=== PATIENT | female | born 1985 | race Caucasian/White ===

== ENCOUNTER 2016-08-03 16:44 | Emergency (ER) | payer SELFPAY ==
[~2016-08-03] VITALS: Ht 162.6 cm; Wt 84.1 kg
[~2016-08-03 16:44] MED LIST: DOXY25TA11 DOB; METO5TAB6 PO; ONDA4TAB7 PO; PREN1TAB53 PO; ZOLP-107 PO
[2016-08-03 16:48] VITALS: Ht 162.6 cm; Wt 84.1 kg
--- OUTSIDE RECORDS SUMMARY | 2016-08-03 16:48 | XMS REPORT | Referral Summary ---
Author Author [facility], Family [facility] Organization [facility] Address Unknown Phone Unavailable Care Team Providers Care Plant Engineering Manager Name Role Phone Cresencio Thibodeaux Primary Care Physician [phone] Encounter VC Date(s): 11/16/15 - 11/16/15 [facility], [address] [place] [address] Discharge Diagnosis: Acute bacterial sinusitis Discharge Disposition: 01-Home or Self Care Attending Physician: Jamila Thibodeaux DO Admitting Physician: Jamila Thibodeaux DO Vital Signs Most recent to 1 oldest [Reference Range]: Temperature Tympanic 37.0 degC [36.6-38.1 degC] (11/16/15 3:51 PM) Peripheral Pulse 100 bpm Rate [60-100 bpm] (11/16/15 3:51 PM) Respiratory Rate 17 br/min [14-20 br/min] (11/16/15 3:51 PM) Blood Pressure 118/70 mmHg [90-140/60-90 mmHg] (11/16/15 3:51 PM) SpO2 98 % (11/16/15 3:51 PM) Problem List Condition Effective Dates Status Health Status Informant Anxiety(Confirmed) Active Migraine Active headache(Confirmed) Obesity(Confirmed) Active patient Allergies, Adverse Reactions, Alerts Substance Reaction Severity Status erythromycin Active Medications Keflex 500 mg oral capsule 500 mg 1 caps, Oral, TID, X 7 days, # 21 caps, 0 Refill(s), Pharmacy: [id number], 1 caps Oral TID,x7 days Start Date: 11/16/15 Stop Date: 11/23/15 Status: Ordered Melatonin Bedtime (once a day), 0 Refill(s) Start Date: 08/18/15 Status: Ordered PROzac 20 mg oral capsule 20 mg 1 caps, Oral, Daily, # 30 caps, 0 Refill(s), Pharmacy: [facility], 1 caps Oral Daily Start Date: 11/16/15 Status: Ordered traZODone 50 mg oral tablet 25 mg 0.5 tabs, Oral, Bedtime (once a day), # 15 tabs, 0 Refill(s), Pharmacy: [facility], 0.5 tabs Oral Bedtime (once a day) Start Date: 11/16/15 Status: Ordered Results No data available for this section Immunizations Vaccine Date Refusal Reason influenza virus vaccine, inactivated 03/04/15 Procedures No data available for this section Social History Social History Type Response Smoking Status Never smoker Assessment and Plan Extracted from: Title: ACUTE sinusitis Author: Jamila Thibodeaux DO Date: 11/16/15 Assessment/Plan Acute bacterial sinusitis We will go ahead and give the patient some Keflex. She shouldavoid taking that much ibuprofen and stick to 800 mg 3 times a day. Advised her that she can take1 g of Tylenol with this at a time to see if this would work adequately. Also advised patient that we would give her no refills of her chronic medications after this one unless she starts keeping follow-up appointments. Ordered: Office Visit Level 3 Est 46949 Sore throat Rapid strep negative. Orders: cephalexin, 500 mg 1 caps, Oral, TID, X 7 days, # 21 caps, 0 Refill(s) , Pharmacy: [facility], 1 caps Oral TID,x7 days FLUoxetine, 20 mg 1 caps, Oral, Daily, # 30 caps, 0 Refill(s), Pharmacy: [facility], 1 caps Oral Daily traZODone, 25 mg 0.5 tabs, Oral, Bedtime (once a day), # 15 tabs, 0 Refill(s) , Pharmacy: [facility], 0.5 tabs Oral Bedtime (once a day)
--- OUTSIDE RECORDS SUMMARY | 2016-08-03 16:48 | XMS REPORT | Referral Summary ---
Author Author [facility], Family Medicine Organization [facility] Address Unknown Phone Unavailable Care Team Providers Care Special Procedures Tech Name Role Phone Cresencio Thibodeaux Primary Care Physician [phone] Encounter VC Date(s): 08/18/15 - 08/18/15 [facility] [place], [address] [place] [address]- Discharge Disposition: 01-Home or Self Care Attending Physician: Aydin Guzman APRN Admitting Physician: Aydin Guzman APRN Vital Signs Most recent to 1 oldest [Reference Range]: Peripheral Pulse 85 bpm Rate [60-100 bpm] (08/18/15 1:31 PM) Blood Pressure 125/90 mmHg [90-140/60-90 mmHg] (08/18/15 1:31 PM) SpO2 99 % (08/18/15 1:31 PM) Problem List Condition Effective Dates Status Health Status Informant Anxiety(Confirmed) Active Migraine Active headache(Confirmed) Obesity(Confirmed) Active patient Allergies, Adverse Reactions, Alerts Substance Reaction Severity Status erythromycin Active Medications Melatonin Bedtime (once a day), 0 Refill(s) Start Date: 08/18/15 Status: Ordered PROzac 20 mg oral capsule 20 mg 1 caps, Oral, Daily, # 30 caps, 0 Refill(s), Pharmacy: [facility], 1 caps Oral Daily Start Date: 08/18/15 Status: Ordered traZODone 50 mg oral tablet 25 mg 0.5 tabs, Oral, Bedtime (once a day), # 15 tabs, 0 Refill(s), Pharmacy: [facility], 0.5 tabs Oral Bedtime (once a day) Start Date: 08/18/15 Status: Ordered Results No data available for this section Immunizations Vaccine Date Refusal Reason influenza virus vaccine, inactivated 03/04/15 Procedures No data available for this section Social History Social History Type Response Smoking Status Never smoker Assessment and Plan No data available for this section
--- OUTSIDE RECORDS SUMMARY | 2016-08-03 16:48 | XMS REPORT | Referral Summary ---
Author Author [facility], Family Medicine Organization [facility] Address Unknown Phone Unavailable Care Team Providers Care Ship Captain Name Role Phone Cresencio Thibodeuax Primary Care Physician [phone] Encounter VC Date(s): 03/04/15 - 03/04/15 [facility] [place], [address] [place] [address]- Discharge Disposition: 01-Home or Self Care Attending Physician: Jamila Thibodeaux DO Admitting Physician: Jamila Thibodeaux DO Vital Signs Most recent to 1 oldest [Reference Range]: Temperature Tympanic 36.9 degC [36.6-38.1 degC] (03/04/15 10:31 AM) Peripheral Pulse 105 bpm Rate [60-100 bpm] *HI* (03/04/15 10:31 AM) Respiratory Rate 17 br/min [14-20 br/min] (03/04/15 10:31 AM) Blood Pressure 140/80 mmHg [90-140/60-90 mmHg] (03/04/15 10:31 AM) SpO2 96 % (03/04/15 10:31 AM) Problem List Condition Effective Dates Status Health Status Informant Obesity(Confirmed) Active patient Allergies, Adverse Reactions, Alerts Substance Reaction Severity Status erythromycin Active Medications busPIRone 10 mg oral tablet 10 mg 1 tabs, Oral, TID, # 90 tabs, 0 Refill(s), Pharmacy: [facility], 1 tabs Oral TID Start Date: 03/04/15 Status: Ordered sertraline 50 mg oral tablet See Instructions, 1 TAB DAILY X 7 DAYS THEN 1.5 TABS DAILY, # 38.5 tabs, 1 Refill(s), Pharmacy: [facility], REFILL WILL BE FOR 45 TABS, 1 TAB DAILY X 7 DAYS THEN 1.5 TABS DAILY Start Date: 03/04/15 Status: Ordered Results Hematology Most recent to 1 oldest [Reference Range]: WBC [4.8-10.8 7.9 10*3/uL 10*3/uL] (03/04/15 11:30 AM) RBC [4.00-5.20] 4.92 (03/04/15 11:30 AM) Hgb [12.0-16.0 14.3 gm/dL gm/dL] (03/04/15 11:30 AM) Hct [37.0-47.0 %] 42.3 % (03/04/15 11:30 AM) MCV [82.0-99.0 fL] 86.0 fL (03/04/15 11:30 AM) MCH [27.0-32.0 pg] 29.1 pg (03/04/15:30 AM) MCHC [32.0-36.0 33.8 gm/dL gm/dL] (03/04/15 11:30 AM) RDW [11.5-14.5 %] 12.2 % (03/04/15 11:30 AM) Platelet [150-400 341 10*3/uL 10*3/uL] (03/04/15 11:30 AM) MPV [8.8-14.8 fL] 11.0 fL (03/04/15 11:30 AM) Immature 0.0 % Granulocytes (03/04/15:30 AM) [0.0-1.0 %] Neutrophils [51-75 69 % %] (03/04/15 11:30 AM) Lymphocytes [20-46 24 % %] (03/04/15 11:30 AM) Monocytes [4-11 %] 6 % (03/04/15 11:30 AM) Eosinophils [0-4 %] 1 % (03/04/15 11:30 AM) Basophils [0-2 %] 0 % (03/04/15 11:30 AM) Neutro Absolute 5.44 10*3 [1.90-7.00 10*3] (03/04/15 11:30 AM) Lymph Absolute 1.87 10*3 [0.80-3.30 10*3] (03/04/15 11:30 AM) Loving Absolute 0.49 10*3 [0.30-1.00 10*3] (03/04/15 11:30 AM) Eos Absolute 0.08 10*3 [0.00-0.50 10*3] (03/04/15 11:30 AM) Baso Absolute 0.02 10*3 [0.00-0.20 10*3] (03/04/15 11:30 AM) Chemistry Most recent to 1 oldest [Reference Range]: Sodium Lvl [135-144 141 mEq/L mEq/L] (03/04/15 11:30 AM) Potassium Lvl 3.8 mEq/L [3.5-5.2 mEq/L] (03/04/15 11:30 AM) Chloride [99-111 107 mEq/L mEq/L] (03/04/1530 AM) CO2 [22-31 mEq/L] 25 mEq/L (03/04/15:30 AM) AGAP [3-20] 9 (03/04/1530 AM) BUN [7-19 mg/dL] 8 mg/dL (03/04/1530 AM) Glucose Lvl [70-99 99 mg/dL mg/dL] (03/04/15 11:30 AM) Creatinine Lvl 0.73 mg/dL [0.57-1.11 mg/dL] (03/04/15 11:30 AM) eGFR [>60 mL/min] >60 mL/min 1 (03/04/15 1130 AM) Calcium Lvl 9.6 mg/dL [8.9-10.5 mg/dL] (03/04/1530 AM) Albumin Lvl [3.5-5.0 4.4 gm/dL gm/dL] (03/04/15 11:30 AM) Total Protein 7.2 gm/dL [6.4-8.3 gm/dL] (03/04/1530 AM) Globulin [1.8-4.0 2.8 gm/dL gm/dL] (03/04/15 11:30 AM) ALT [0-55 U/L] 12 U/L (03/04/1530 AM) AST [5-34 U/L] 14 U/L (11/12/15 11:30 AM) Alk Phos [40-150 76 U/L U/L] (03/04/15 11:30 AM) Bili Total [0.2-1.2 1.1 mg/dL mg/dL] (03/04/15 11:30 AM) TSH with Reflex Free 0.90 T4 [0.35-4.94] (03/04/15 11:30 AM) 1Result Comment: Multiply eGFR results by 1.21 for race. Immunizations Vaccine Date Refusal Reason influenza virus vaccine, inactivated 03/04/15 Procedures No data available for this section Social History Social History Type Response Smoking Status Never smoker Assessment and Plan No data available for this section
[2016-08-03] MEDS ORDERED: IBUP-1724 PO (17:14)
[2016-08-03] MEDS ORDERED: NO ROUTINE MEDS (17:15)
[2016-08-03] MEDS ORDERED: AMOX875T2 PO (17:28)
[2016-08-03] MEDS ORDERED: ACETAMINOPHEN 500 MG TABLET PO ONE (17:30)
--- NOTE | 2016-08-03 17:31 | ERPDOC ---
Departure Disposition Decision Date: Aug 03, 2016 Disposition Decision Time: 17:27 Disposition: 01 DISCHARGED HOME, SELF-CARE Impression Impression Impression: Primary Impression: Pharyngitis Qualified Codes: J02.9 - Acute pharyngitis, unspecified Severity: Mild Condition: Improved Seen By: Physician only Referrals: [facility] 2 Days Patient Instructions: Pharyngitis (ED) Problems/Meds/Labs Reviewed?: Yes Medications reviewed and manag: Yes Follow up care ordered?: Yes Mental Status: Alert, Oriented Scripts Amoxicillin (Amoxicillin) 875 Mg Tablet 1 TAB PO Q12H for 10 Days, #20 TAB 0 Refills Prov: HESHAM BERNABE DO 08/03/16 HPI - EENT General General Chief Complaint: Throat Pain/Injury Stated Complaint: SORE THROAT Time Seen by Provider: 17:20 Source: patient Exam Limitations: no limitations HPI - EENT General Initial Comments 31-year-old female presents to the emergency department with a chief complaint of a sore throat. Patient noted onset of symptoms "a couple of days ago." Symptoms have been gradual in progression. Patient was at home when her symptoms began. Patient notes a moderate sharp pain in her throat which increases with swallowing and improves with rest and analgesia. No radiation. Patient denies any other complaints or associated symptoms. Occurred At: home Onset/Timing: Gradual Allergies: Coded Allergies: Shellfish *RETIRED-01/29/12 (Verified Allergy, Severe, 04/08/12) azithromycin (Verified Allergy, Intermediate, 04/08/12) Erythromycin Base (Verified Adverse Reaction, Unknown, NAUSEA, 04/08/12) Past History Past Medical History Pt denies signifigant PMH Hx Echocardiogram: No Surgical History Denies Surgeries Family History Family History: Negative Vaccines Hx Influenza Vaccination: Yes Hx Pneumococcal Vaccination: No Hx Tetanus Diptheria: Yes (AGE 17) Social History Smoking Status: Never smoker Substance Use Type: does not use Alcohol Intake: none Review of Systems Constitutional Constitutional: DENIES: chills, fever Eyes General: DENIES: erythema, exudate Lids/Accessories: DENIES: erythema, swelling Vision: DENIES: acuity, blurring ENMT Ears: DENIES: drainage, erythema Hearing: DENIES: hearing loss Balance: DENIES: ataxia, falling to one side Sinuses: DENIES: congestion, pain Nose: DENIES: nosebleeds, pain Mouth/Throat: painful swallowing, sore throat, DENIES: drooling Teeth: DENIES: pain Jaw: DENIES: pain Cardiovascular Cardiac: DENIES: chest pain, dyspnea on exertion Rhythm/Rate: DENIES: irregular beat, palpitations Vascular: DENIES: pedal edema, unilateral swelling Pulmonary Respiratory: DENIES: cough, dyspnea, pleuritic chest pain, sputum GI Upper Abdomen: DENIES: nausea, pain, vomiting Lower Abdomen: DENIES: diarrhea, pain General: DENIES: dysuria, frequency Musculoskeletal General: DENIES: cramps, joint pain, pain, tenderness Integumentary Skin: DENIES: itching, rash Neurological General: DENIES: headache, numbness, weakness Psychiatric Psychiatric: DENIES: emotional instability, suicidal ideation/attempt Endocrine Endocrine: DENIES: polydipsia, polyphagia Hematologic/Lymphatic Hematologic/Lymphatic: DENIES: frequent nosebleeds, lymphadenopathy Allergic/Immunological Allergic/Immunoligical: DENIES: allergic reactions, hives Physical Exam General General Nourishment: well nourished, well developed, appears stated age, no acute distress, adult General Body Habitus: well groomed Vitals and Pain First Documented Vital Signs Date Time Temp Pulse Resp B/P Pulse Ox O2 Delivery O2 Flow Rate FiO2 08/03/16 16:48 98.9 83 16 130/76 98 Room Air Weight: Kilograms: 84.100 Height (feet): 5 Height (inches): 4.00 Triage Pain Scale: RN VS reviewed by Provider: Yes Normal Exams: Head: Normocephalic w/o trauma Eyes: Pupils are PERRLA w/ EOMI, No scleral icterus, irritation, or foreign bodies noted ENMT: No facial trauma, nasal exudates Dental: No fractured, loose, or missing teeth noted Neck: Full range of motion, without adenopathy, JVD, bruits or thyromegaly Chest/Resp: Clear all powell, with good airflow, and symmetry bilaterally CV: Regular rate and rhythm, without murmur or gallop, Pulses 2+ all extremities, capillary refill, <2 seconds all ext., no pedal edema noted Abdomen: Bowel sounds positive, soft, non-tender, non-distended, no hepatosplenomegaly, masses or bruits noted Lymphatic: No lymphadenopathy, or lymphedema noted Musculoskeletal: No tenderness, or deformity noted, good range of motion, all extremities Integumentary: No rashes, hives, or bruising noted, hair and nails, without abnormality Neurologic: Patient is alert, and oriented, cranial nerves, motor/sensory/ cerebellar, exams w/o gross deficits, to observation Psychiatric: Patient exhibits, appropriate attention, emotion and affect ENMT (brief) Comments Oral - mild posterior pharyngeal erythema. Tonsillar exudates noted. Uvula midline. Voice normal. Handling secretions without difficulty. No elevation of tongue. No sign of abscess. No facial swelling or cellulitis. Differential Diagnoses Considering: Sinusitis, URI, Other (pharyngitis/viral syndrome) Progress Results/Orders Orders Procedure Category Date Status Time Acetaminophen PHA 08/03/16 Complete (Tylenol Extra 17:30 Medications Current ED Medications Acetaminophen (Tylenol Extra Strength) 1,000 mg O ONCE PO Last administered on 08/03/16t 18:01; Start 08/03/16 at 17:30; Stop 08/03/16 at 17:31; Status DC Progress Progress Patient is offered a rapid strep and mono titer which she declines. Patient is started on amoxicillin 875 mg by mouth twice a day 10 days. Patient is given analgesic pain medication in the emergency department with improvement of symptoms. Patient is discharged home in improved condition. She is to follow up as instructed. Patient is to return to the emergency Department if her condition worsens or changes in any manner. Patient is in agreement with the current plan of management. She is to follow up as instructed. She is to continue to use [id number] analgesic pain medication as needed for pain/ fever control. She is provided with a prescription for amoxicillin 875 mg by mouth twice a day 10 days. She is in agreement with the current plan of management. HESHAM BERNABE DO Aug 03, 2016 17:30 HESHAM BERNABE DO Aug 03, 2016 17:30
[2016-08-03 18:05] VITALS: BP 115/72; PULSE 79; RESP 16; TEMP 98.9; O2SAT 97
== END 2016-08-03 18:05 | disposition home or self-care (01) ==
LOC: ED 16:44
DX: J02.9 Acute pharyngitis, unspecified (principal)

== ENCOUNTER 2017-06-17 18:51 | Inpatient (IN) ==
--- OUTSIDE RECORDS SUMMARY | 2017-06-17 18:56 | External Medical Summary | Continuity of Care Document ---
:1985 Author Organization [facility] [employer] [facility] Address [address] [place], [place] [id number] Phone Care Team Providers Name Role Phone Jamila Thibodeaux DO Unavailable Unavailable Allergies, Adverse Reactions, Alerts Substance Reaction Severity Status shellfish derived Trouble Breathing Unknown Active azithromycin stomch cramps vomiting Unknown Active Medications Medication Instructions Dosage Effective Status Comments Dates (start - stop) zolpidem 5 mg tablet take 1 tablet by 5 MG - Active oral route every day at bedtime ORAL - Active TABLET ondansetron 4 mg take 1 by Oral Not Available - No Longer disintegrating route every 4 Active tablet hours as needed for nausea Problems Condition Effective Dates (start - stop) Clinical Status Morbid (severe) obesity due to excess - calories Obesity complicating , second - trimester Encounter for suprvsn of normal - , second trimester 17 weeks gestation of - Oth related conditions, - third trimester Abn chromsoml and genetic find on - antenat screen of mother Abnormal glucose complicating - 35 weeks gestation of - Morbid (severe) obesity due to excess - calories Abn chromsoml and genetic find on - antenat screen of mother Encounter for suprvsn of normal - , third trimester 28 weeks gestation of - Vomiting of , unspecified Abn chromsoml and genetic find on - antenat screen of mother Obesity complicating , third - trimester 36 weeks gestation of - Abn chromsoml and genetic find on - antenat screen of mother Obesity complicating , second - trimester Encounter for suprvsn of normal - , second trimester 26 weeks gestation of - Abn chromsoml and genetic find on - antenat screen of mother Obesity complicating , third - trimester Encounter for suprvsn of normal - , third trimester 36 weeks gestation of - Abn chromsoml and genetic find on - antenat screen of mother Obesity complicating , third - trimester Abnormal glucose complicating - 31 weeks gestation of - Abn chromsoml and genetic find on - antenat screen of mother Abnormal glucose complicating - 33 weeks gestation of - Decreased movements, third - trimester, unsp Obesity complicating , third - trimester Encounter for suprvsn of normal - , third trimester 37 weeks gestation of - Obesity complicating , second - trimester Encounter for suprvsn of normal - , second trimester 20 weeks gestation of - Encounter for suprvsn of normal - , second trimester 20 weeks gestation of - IUD Surveillance - Active Procedures Procedure Date Unknown Results Test Name Date and Time Measure Units Reference Range Abnormal Flag Comments Unknown Advance Directives Directive Yes / No Effective Date File Name Unknown Encounters Encounter Practice Location Reason(s) Diagnoses Date Provider Care Team Description For Visit Members [facility] Decreased Feb-1 Sobbing In Womens movements, third 5-201 [facility], trimester, 8 700 [address] [facility], complicating [place], , third [facility], [place], trimesterEncount [address] [id number], er for suprvsn 120, [place] of normal [place], tel:[phone] , third [place], [email or web address] [address], weeks gestation [place]. of tel: [phone] [facility] [place] Abn chromsoml Feb-0 [facility]bing In Womens and genetic find 8-201 [facility], on antenat 8 700 [address] screen of Medical [address], [facility] [place], , third [address] [id number], trimesterEncount 120, [place] er for suprvsn [place], tel:+[phone] of normal [place], [id number] , third [address], [email or web address] [place]. weeks gestation tel:[phone] of [phone] [facility] Abn chromsoml Feb-0 [facility] In Womens Ultrasound and genetic find 8-201 [facility], on antenat 8 700 [address] screen of Medical [address], [place], [place], , third [address] [id number], [email or web address] 120, [place] weeks gestation [place], tel:+[phone] [place], [address], [place]. tel: [phone] [facility] Oth Feb-0 [facility]bing In Womens related 5-201 [facility], conditions, 8 700 PO [address] third Medical 1522, trimesterAbn [facility] and [place], [place], genetic find on Suite , antenat screen 120, [place] of [place], tel:[phone] [place]Abnormal [place], glucose [address], complicating [place]. [email or web address] tel:+05-23 weeks gestation [phone] of [facility] Serjio-2 Sobbing In Womens 6-201 [facility], 8 700 [address] Medical [address], Center [place], [place], [address] [id number], 120, [place], tel:[phone] [place], [address], [place]. tel: [phone] [facility] Abn chromsoml Serjio-2 Sobbing In Womens and genetic find 3-201 [facility], on antenat 8 700 PO [address] screen of Medical [address]22, motherAbnormal Center [place], glucose [facility], [place], complicating [address] [id number], [email or web address] 120, [place] weeks gestation [place], [place], [address], [place]. tel: [phone] [facility] Abn chromsoml Serjio-0 Sobbing In Womens and genetic find [facility], on antenat 8 700 PO [address] screen of Medical [address]22, [facility] [place], , third Suite , trimesterAbnorma 120, [place] l glucose [place], tel: complicating [place], [id number] [address], weeks gestation [place]. of tel: [phone] [facility] Morbid (severe) Dec-1 Sobbing Referring In Womens obesity due to [facility]. Provider: Latonia QUIROZ, excess 7 700 [place]ory PO Box caloriesAbn Medical Sobbing L, 1522, chromsoml and Center 700 Medical [place], genetic find on [facility], antenat screen [address] Suite , of 120, 120, [place] motherEncounter [place], tel: for suprvsn of [place], . normal [address], tel: , third [place]. [id number] [email or web address] tel: weeks gestation [phone] of [facility] Abn chromsoml Nov-3 Sobbing In Womens and genetic find 0 [facility], on antenat 7 700 [address] screen of Medical [address], motherObesity [place], [place], , Suite , second 120, [place] trimesterEncount [place], tel: [facility] of normal [address], , [place]. second tel: [id number] [phone] weeks gestation of [facility] Obesity Oct-1 Sobbing In Womens complicating [place], , 7 700 PO Box second Medical 1522, [facility], er for [place], [place], of normal [address] [id number], , 120, [place] second [place], tel:+ [id number] [place], weeks gestation [address], of [place]. tel:[phone] Brandy [place] Encounter for Oct-1 Sobbing In Womens Ultrasound suprvsn of 9 [facility], normal 7 700 PO Box , Medical [address]22, second Center [place], [email or web address] [place], [place], weeks gestation [address] [id number], of 120, [place], [place], [address], [place]. tel: [phone] Brandy [place] Morbid (severe) Sep-2 Sobbing In Womens obesity due to 8 [facility] [place], excess 7 700 PO Box caloriesObesity Medical 1522, complicating Center [place], , [facility], [place], second [address] [id number], trimesterEncount 120, [place] er for suprvsn [place], [place]: [place], , [address], second [place]. [email or web address] tel: weeks gestation [phone] of [facility] Vomiting of Sep-1 Sobbing In Womens , 2-201 [facility], unspecified 7 700 [address] Medical [address], Center [place], [place], [place], Suite , 120, [place], [place], [address], [place]. tel: [phone] Brandy [place] Oct-1 Js Referring In Womens 5-201 [place]. 700 Provider: Latonia QUIROZ, 3 Medical [facility] [address] [place] [address], Peter Serrano [address] [place] [address] 120, [place], [place] [address], , [place], [place], [place] [id number]. tel: , [place]. tel: tel: [phone] Brandy [facility] Oct-1 Js Referring In Womens 8-201 [place]. 700 Provider: Latonia QUIROZ, 1 Medical [facility] 1522, , [facility], 120, [place], [place], [place], [address], [id number], [place], [place], [place] [id number]. tel: , [place]. tel: tel: [phone] Family History Family Member Diagnosis Age At Onset No family history of Ovarian Cancer Close relative Cancer, breast No family history of Stroke No family history of Colon Cancer Maternal Grandmother Cancer, breast No family history of Osteoporosis Paternal Grandmother Myocardial Infarction No family history of Thyroid Disorder No family history of Epilepsy No family history of Kidney Problems No family history of Diabetes No family history of Lung Disease No family history of Hypertension Immunizations Vaccine Date Status Comments Tdap completed Source: New Immunization Record Payers Payer name Insurance type Covered alliance party ID Authorization(s) [employer] [place] [employer] - Medicaid [place] [id number] [facility] [id number] [employer] - Medicaid [place] [id number] Social History Type Description Quantity Date Captured Unknown Vital Signs Date / Height Weight BMI Pulse Blood Temperature Respiratory Body Head BMI Time: Rate Pressure Rate Surface Circumference percentile Area Unknown Chief Complaint And Reason For Visit Unknown Chief Complaint And Reason For Visit Reason For Referral Reason For Referral Unknown Plan Of Care Date Type Action Status Goal Lifestyle education regarding completed diet Appointment Ainsley Nuñez BOOKED Future Order: Radiology Order Ultrasound OB Follow-up ([id number]) Ordered Future Order: Radiology Order Complete OB Ultrasound > 14 Ordered Weeks ([id number]) Date Type Problem Goal Intervention Status Start Date Unknown. History Of Present Illness Encounter Date Complaint History Of Present Illness This patient has no known history of present illness Functional Status Encounter Date Functional Assessment Cognitive Assessment Unknown Medications Administered Medication Instructions Dosage Effective Dates (start - stop) Status Comments Drug Treatment Unknown Instructions Date Instruction Additional Information anticipated course of care nutrition and weight gain counseling, special diet toxoplasmosis precautions (cats / raw meat) sexual activity exercise indications for ultrasound influenza vaccine environmental / work hazards travel tobacco (ask, advise, assess, assist and arrange) alcohol illicit / recreational drugs use of any medications (including supplements, vitamins, herbs, OTC drugs) smoking counseling domestic violence seat belt use childbirth classes / hospital facilities hospital registration genetic testing new ob handbook risks HIV and other routine tests risk factors identified by history Giving encouragement to exercise Related to Body mass index 34.0-34.9 Lifestyle education regarding diet Related to Body mass index 34.0-34.9
[2017-06-17] MEDS ORDERED: METHYLERGONOVINE 0.2 MG/ML INJECTION IM PRN (19:20)
[2017-06-17] MEDS ORDERED: MAG-AL + SIM ORAL LIQUID 30ml PO PRN (19:20)
[2017-06-17] MEDS ORDERED: CARBOPROST 250 MCG/ML INJECTION IM PRN (19:20)
[2017-06-17] MEDS ORDERED: SALINE FLUSH 10ml SYRINGE IV PRN (19:20)
[2017-06-17] MEDS ORDERED: LIDOCAINE 1% (10mg/ml) 2mL INJ PF SDV ID PRN (19:20)
[2017-06-17] MEDS ORDERED: ACETAMINOPHEN 500 MG TABLET PO PRN (19:20)
[2017-06-17 19:35] VITALS: BMI 36.6
[2017-06-17] MEDS: LR 1,000 ML IV PRN (19:56)
--- NOTE | 2017-06-17 22:06 | Anesthesia Preoperative Report ---
Anesthesia Epidural/Spinal Rec - Date and Time Date: 06/17/17 Procedure: Labor Epidural Plan: Epidural - Vital Signs Vital Signs: Temperature 98.3 F 06/17/17 19:35 Pulse Rate 108 H 06/17/17 19:35 Respiratory Rate 20 06/17/17 19:35 Blood Pressure 137/82 06/17/17 19:35 /Para: P:4 - Medictaions & Allergies Inpatient Medications: Current Medications Acetaminophen (Tylenol) 500 - 1,000 mg PO Q4H PRN PRN Reason: Pain Al Hydroxide/Mg Hydroxide (Maalox Plus) 30 ml PO Q3H PRN PRN Reason: Indigestion Calcium Carbonate (Tums) 500 - 1,000 mg PO Q2H PRN PRN Reason: Indigestion Carboprost Tromethamine (Hemabate) 250 mcg IM O PRN PRN Reason: .Downtime Lactated Ringer's (Lactated Ringers) 1,000 mls @ 999 mls/hr IV .Q1H1M PRN Last Admin: 06/17/17 19:56 Dose: 999 mls/hr Lidocaine HCl (Xylocaine-Mpf 1% Vial) 0.2 mg ID O PRN PRN Reason: IV Start Methylergonovine Maleate (Methergine) 0.2 mg IM O PRN Misoprostol (Cytotec) 800 mcg ID ONCE PRN Sodium Chloride (Iv Flush) 10 - 80 ml IV PRN PRN PRN Reason: Flushing Allergies/Adverse Reactions: Allergies Allergy/AdvReac Type Severity Reaction Status Date / Time azithromycin Allergy Intermediate Verified 04/08/12 06:55 erythromycin base AdvReac Unknown NAUSEA Verified 04/08/12 06:55 Shellfish Allergy Severe Uncoded 04/08/12 06:55 - Home Medications Home Medications: Home Medications Medication Instructions Recorded Confirmed Type Ambien 06/04/17 History Vitamins 06/04/17 History - Medical History Neuro/Musculoskeletal: Reports: Depression (hx Post depression) Renal/Endocrine: Reports: Other (hyperkalemia) Other History: Reports: Now - Surgical History Reproductive Surgery/Treatment: DENIES: Section Anesthesia Reactions: None Hx Family Anesthesia Reaction: No History of Motion Sickness: No - Social History Smoking Status: Never smoker Second Hand Exposure: No Substance Use Type: does not use Alcohol Intake Frequency: does not drink Hx Chewing Tobacco Use: No - Pertinent Findings Lab Data: CBC and BMP 06/17/17 19:45 - Physical Exam Respiratory Exam: lungs clear Cardiovascular Exam: regular rate and rhythm, no murmur - Airway Assessment Mallampati Score: II TMD: 3 Fingerbreadths Neck Extension: good Overall Assessment: no airway concerns - ASA ASA Score: 2 - Discussion Discussion: Discussed risks/options/alternatives of anesthesia and questions answered. Patient consents. Nursing pain assessment noted. Anesthesia Discussion: family member Attestation Statement: Prior to the delivery of any anesthetic medication, I examined the patient, developed the plan, obtained the patient's consent and discussed the risk and benefits of the procedure with the patient/guardian.
[2017-06-17] MEDS ORDERED: D5LR 1,000 ML IV PRN (23:58)
[2017-06-17] MEDS ORDERED: OXYTOCIN DRIP 30 UNIT/500 ML ML IV PRN (23:58)
[2017-06-18] MEDS: CALCIUM CARBONATE Chewable 500mg TABLET PO PRN ×2 (00:15→07:18)
[2017-06-18] MEDS ORDERED: BUTORPHANOL 2 MG/ML INJECTION IVP PRN (02:07)
[2017-06-18] MEDS ORDERED: DiphenhydrAMINE 50 MG/ML INJECTION IVP PRN (05:05)
[2017-06-18] MEDS ORDERED: NALOXONE 0.4 MG/ML INJECTION IVP PRN (05:05)
[2017-06-18] MEDS ORDERED: ROPIVACAINE 1% 10MG/ML INJ 200 MG, SUFentanil 50 MCG in NS 100 ML EPI PRN (05:05)
[2017-06-18] MEDS ORDERED: ONDANSETRON 4 MG/2 ML INJECTION IVP PRN (05:05)
[2017-06-18] MEDS: LR 1,000 ML IV PRN (06:13)
--- NOTE | 2017-06-18 07:46 | OB/GYN Progress Note ---
- Pain Control Pain control: Epidural - Pelvic Exam Dilation (cm): 7 Effacement (%): 100 station: -1 Amniotic membrane status: Ruptured - Contractions Monitor mode: External Contraction frequency: 3 Contraction pattern: Regular Contraction intensity: Moderate - Status status: Category l - Assessment and Plan Assessment: induction ongoing Plan: continuous present management
[2017-06-18] MEDS ORDERED: DiphenhydrAMINE 25 MG CAPSULE PO PRN ×2 (08:24→18:38)
[2017-06-18] MEDS ORDERED: ACETAMINOPHEN 500 MG TABLET PO PRN ×2 (08:24→18:38)
[2017-06-18] MEDS ORDERED: MAG-AL + SIM ORAL LIQUID 30ml PO PRN ×2 (08:24→18:38)
[2017-06-18] MEDS ORDERED: HYDROCORTISONE 2.5% CREAM 30gm RECTALLY PRN ×2 (08:24→18:38)
[2017-06-18] MEDS ORDERED: CALCIUM CARBONATE Chewable 500mg TABLET PO PRN ×2 (08:24→18:38)
[2017-06-18] MEDS ORDERED: Oxycodone/Acetaminophen 5/325 1 TAB PO PRN (08:24)
--- NOTE | 2017-06-18 08:28 | OB/GYN Procedure Note ---
Delivery date: 06/18/17 Events: Labor Induction, Premature Rupture of Membrane Intrapartal events: None Induction method: per pitocin protocol Delivery monitor: external FHT, external uterine Route of delivery: Laceration description: None Anesthesia type: Epidural Disposition: floor - [place] Baby 1 Infant gender: Female presentation: Vertex position: Vertex-by exam Placenta delivery description: Spontaneous cord vessel description: 3 Vessels at 1 minute: 8 at 5 minutes: 9
[2017-06-18] MEDS ORDERED: DOCUSATE CALCIUM 240 MG CAPSULE PO SCH (09:00)
[2017-06-18] MEDS: IBUPROFEN 800 MG TABLET PO PRN ×2 (09:34→18:46)
--- NOTE | 2017-06-18 13:36 | Labor and Delivery Note ---
DATE OF SERVICE: 06/18/2017 This is a G6, P3 who presented to [facility]aternal Child [facility] with complaints of rupture of membranes and denied contractions. She was diagnosed with premature rupture of membranes. She was given six hours to see if she progressed into labor, which did not, and at that time the Pitocin protocol was started with 2 units every 30 minutes. Over the next 4 hours she progressed slowly from 2 cm to 4 cm at 4 a.m. She continued to progress slowly on the Pitocin protocol and was given epidural anesthesia and at 6 a.m. was noted to be 6 cm . Once she was 6 cm, she progressed rapidly. At 7 a.m. she was noted to be 7 cm and 100% effaced and -1 station and at approximately 8 a.m. she was complete and 0 station. The patient desired to start pushing at this time and she pushed for a total of approximately 15 minutes. Spontaneous vaginal delivery of a viable female named "Butt" with Apgars of 8 and 9 and a weight of 3,442 grams. Fetus was delivered in the occiput-posterior position without difficulty with less than 15 minutes of pushing. The patient received epidural anesthesia during labor and delivery. Estimated blood loss was 200 ml. There was a loose nuchal x 1 that was reduced. Placenta was delivered spontaneously and no vaginal lacerations were found or a need of repair. The patient tolerated the procedure well. She and the infant remained in the Labor & Delivery suite in stable condition. The patient plans to breast feed and the patient was A positive, GBS negative, rubella immune. Complications with this was a failed 1-hour diabetes screen with a passed 3-hour and a positive trisomy 21 screen on the quad screen. [facility]
[2017-06-19] MEDS: IBUPROFEN 800 MG TABLET PO PRN ×2 (05:42→13:46)
--- NOTE | 2017-06-19 07:22 | OB/GYN Progress Note ---
OB-PP Progress Note - General PPD1 Maternal Group B Strep: Negative Maternal blood type: A+ Maternal Rubella Status: Immune - Subjective Date: 06/19/17 Lochia: Moderate Pain: controlled Voiding: voiding Nausea or Vomiting Present: No - Objective Vital Signs: Last Vital Signs Temp 97.6 F 06/19/17 07:06 Pulse 60 06/19/17 07:06 Resp 16 06/19/17 07:06 BP 126/74 06/19/17 07:06 Pulse Ox 93 06/19/17 07:06 Urine Output: good General: alert and oriented Respiratory: non-labored Abdomen: fundus firm, non-tender Extremities: non-tender Edema: none - Assessment Assessment: SP, - Plan Plan: routine care, discharge home
[2017-06-19] MEDS ORDERED: DOCUSATE CALCIUM 240 MG CAPSULE PO SCH (09:00)
[2017-06-19] MEDS: PRENATAL VITAMIN TABLET PO SCH ×2 (13:45→13:47)
[2017-06-19 14:02] VITALS: BP 137/73; PULSE 77; RESP 14; TEMP 97.9; O2SAT 97
== END 2017-06-19 13:55 | disposition home or self-care (01) | DRG 775 ==
LOC: OBOBS 18:51 → MC 18:52
PROVIDERS: ADMIT Obstetrics & Gynecology; ATTEND Obstetrics & Gynecology